=== PATIENT | male | born 1975 | race Caucasian/White ===

== ENCOUNTER 2018-06-03 13:18 | Emergency (ER) | payer MEDICAID ==
[2018-06-03 13:22] VITALS: O2SAT 98
--- NOTE | 2018-06-03 13:52 | ED PDOC ---
HPI: Back Time Seen by Provider: 06/03/18 13:38 Chief Complaint (Nursing): Back Pain Chief Complaint (Provider): Back Pain History Per: Patient History/Exam Limitations: no limitations Onset/Duration Of Symptoms: Days (x2) Current Symptoms Are (Timing): Still Present Additional Complaint(s): 43 year old male with hx of lower back pain presents to the ED for evaluation of acute onset right sided back pain for the past two days. Patient reports that at onset, he was performing normal activities when he felt right sided lower abdominal pain radiating to his right back and front part of his thigh associated with tingling in the anterior thigh. He states he took Flexeril (last does last night) and Ibuprofen (last dose 800mg this morning 0800) with minimal relief, but today he bent over to pick something up with acute worsening of pain, prompting him to call EMS to bring him in for further evaluation. Otherwise denies numbness/tingling in his right foot, right LE weakness, fever, chills, night sweats, nausea, vomiting, diarrhea, dysuria, and hx of diabetes, htn, or hyperlipidemia. PMD: Erasto Cruz Past Medical History Reviewed: Historical Data, Nursing Documentation, Vital Signs Vital Signs: Last Vital Signs Temp 98.1 F 06/03/18 13:22 Pulse 90 06/03/18 13:22 Resp 18 06/03/18 13:22 BP 118/67 06/03/18 13:22 Pulse Ox 98 06/03/18 13:22 - Medical History PMH: Back Problems (lower back) Denies: Arthritis, CHF, COPD, HTN, Hypercholesterolemia, Hypothyroidism, Chronic Kidney Disease, Rheumatoid Arthritis Other PMH: inguinal hernia - Surgical History Surgical History: Hernia Repair (inguinal) Denies: Back Surgery - Family History Family History: States: Unknown Family Hx - Home Medications Home Medications: Ambulatory Orders Medication Instructions Recorded Acyclovir 5% [Zovirax 5% Oint] 1 applic EXT Q6 PRN #0 tube 07/29/15 Amoxicillin/Clavulanate [Augmentin 1 tab PO BID #0 tab 07/29/15 875 MG-125 MG] Clindamycin [Cleocin] 300 mg PO Q6 #0 cap 07/29/15 Lactobacillus Acidophilus [Bacid 1 cap PO BID #0 cap 07/29/15 Acidophilus] Cyclobenzaprine [Cyclobenzaprine 10 mg PO Q8 PRN 7 Days tab 06/03/18 HCl] Ibuprofen [Motrin Tab] 800 mg PO Q6 PRN 7 Days tab 06/03/18 Methylprednisolone [Medrol Dose 4 mg PO DAILY #21 mg 06/03/18 Pack (21 tabs)] - Allergies Allergies/Adverse Reactions: Allergies Allergy/AdvReac Type Severity Reaction Status Date / Time No Known Allergies Allergy Verified 06/03/18 13:35 Review of Systems ROS Statement: Except As Marked, All Systems Reviewed And Found Negative Constitutional: Negative for: Fever, Chills, Sweats Gastrointestinal: Positive for: Abdominal Pain (right sided). Negative for: Nausea, Vomiting, Diarrhea Genitourinary Male: Negative for: Dysuria Musculoskeletal: Positive for: Back Pain (lower right radiating into right anterior thigh) Neurological: Positive for: Other (tingling in anterior thigh). Negative for: Weakness (in right LE), Numbness (or tingling in right foot) Physical Exam - Reviewed Nursing Documentation Reviewed: Yes Vital Signs Reviewed: Yes - Physical Exam Appears: Positive for: Uncomfortable Pulses-Dorsalis Pedis (R): 2+ Gastrointestinal/Abdominal: Positive for: Tenderness (to palpation of RLQ; mild tenderness to palpatino of LLQ), Guarding. Negative for: Rebound Back: Positive for: Normal Inspection (no ecchymosis, erythema, or swelling noted), Other (severe tendernes to palpation of right lower back with radiation of pain to anterior right thigh) Extremity: Positive for: Normal ROM (normal flexion and extension at right ankle; flexion at left hip causes right lower back pain; decreased ROM with flex ion at right hip and knee secondary to pain in right lower back), Other (sensation equal in bilateral LE; no ecchymosis, erythema, or swelling noted to bilateral LE) Neurologic/Psych: Positive for: Alert, Oriented (x3) - Laboratory Results Result Diagrams: 06/03/18 14:04 06/03/18 14:04 - ECG O2 Sat by Pulse Oximetry: 98 (RA) Pulse Ox Interpretation: Normal Medical Decision Making Medical Decision Making: Initial Impression: back pain Time: 1350 Initial Plan: --CMP --U-dip --CBC with differential --Flexeril 10mg PO --Toradol 30mg IVP --Reevaluation 1600 On reevaluation, patient reports improvement in symptoms. Labs grossly unremarkable. Patient advised to continue taking Flexeril and Ibuprofen for the pain at home and to follow up with his PMD for follow up. Scribe Attestation: Documented by Lyudmila Thompson, acting as a scribe for Janie Grace PA-C. Provider Scribe Attestation: All medical record entries made by the Scribe were at my direction and personally dictated by me. I have reviewed the chart and agree that the record accurately reflects my personal performance of the history, physical exam, m edical decision making, and the department course for this patient. I have also personally directed, reviewed, and agree with the discharge instructions and disposition. Disposition - Clinical Impression Clinical Impression: Low back pain - Patient ED Disposition Is Patient to be Admitted: No Counseled Patient/Family Regarding: Studies Performed, Diagnosis, Need For Followup - Disposition Referrals: Erasto Rodriguez MD [Family Provider] - Disposition: Routine/Home Disposition Time: 16:00 Condition: STABLE Additional Instructions: Take Flexeril and Ibuprofen fairly regularly for the next 24hrs then as needed. Complete Medrol dose pack as can help with the pain. Perform normal activities and avoid long periods of inactivity. Prescriptions: Cyclobenzaprine [Cyclobenzaprine HCl] 10 mg PO Q8 PRN 7 Days tab PRN Reason: Pain, Moderate (4-7) Ibuprofen [Motrin Tab] 800 mg PO Q6 PRN 7 Days tab PRN Reason: Pain, Moderate (4-7) Methylprednisolone [Medrol Dose Pack (21 tabs)] 4 mg PO DAILY #21 mg Instructions: Low Back Pain (DC) Forms: [employer] (Tongan) Print Language: SYRIAC
[2018-06-03 14:20] LABS: BASO # 0.1 K/uL (0.0-0.2); BASO % 0.6 % (0.0-2.0); EOS # 0.1 K/uL (0.0-0.7); EOS % 1.5 % (0.0-4.0); HEMOGLOBIN 13.5 g/dL (12.0-18.0); LYMPH # 1.8 K/uL (1.0-4.3); LYMPH % 23.2 % (20.0-40.0); MEAN CELL VOLUME 96.1 fl (80.0-94.0); MEAN CORPUSCULAR HEMOGLOBIN 31.8 pg (27.0-31.0); MEAN CORPUSCULAR HGB CONC 33.1 g/dL (33.0-37.0); MEAN PLATELET VOLUME 10.4 fl (7.2-11.7); MONO # 0.5 K/uL (0.0-0.8); MONO % 6.3 % (0.0-10.0); NEUT # 5.4 K/uL (1.8-7.0); NEUT % 68.4 % (50.0-75.0); NRBC % 0.1 % (0.0-0.0); RBC 4.25 Mil/uL (4.40-5.90); RED CELL DISTRIBUTION WIDTH 13.1 % (11.5-14.5)
[2018-06-03 14:30] LABS: ALB/GLOB RATIO 1.3 (1.0-2.1); ALT/SGPT 31 U/L (21-72); AST/SGOT 19 U/L (17-59); BLOOD UREA NITROGEN 19 mg/dl (9-20); CALCIUM 9.2 mg/dL (8.4-10.2); GFR NON-AFRICAN AMERICAN > 60
[2018-06-03 15:50] LABS: URINE BILIRUBIN NEGATIVE (NEGATIVE); URINE BLOOD NEGATIVE (NEGATIVE); URINE CLARITY CLEAR (Clear); URINE COLOR YELLOW (YELLOW); URINE GLUCOSE (UA) NEG (NEGATIVE); URINE LEUKOCYTE ESTERASE TRACE Leu/uL (Negative); URINE PROTEIN NEGATIVE (NEGATIVE); URINE UROBILINOGEN 0.2-1.0 mg/dL (0.2-1.0)
[2018-06-03 15:56] VITALS: BP 128/74; PULSE 84; RESP 16; TEMP 98
== END 2018-06-03 16:00 | disposition home or self-care (01) ==
LOC: H.ER 13:18
DX: M54.5 Low back pain (principal)
CPT/HCPCS: 80053; 81003; 85025; 87086; 96374; 99282; J1885